=== PATIENT | male | born 1970 | race Caucasian/White ===

== ENCOUNTER → 2017-04-17 | Outpatient (CLI) | payer OTHER | END | disposition home or self-care (01) | LOC: EMPHLTH 07:48 | PROVIDERS: ATTEND Internal Medicine | DX: Z02.1 Encounter for pre-employment examination (principal) | CPT/HCPCS: 86706; 86735; 86762; 86765; 86787 ==

== ENCOUNTER 2019-11-02 12:15 | Emergency (ER) | payer OTHER ==
[~2019-11-02] VITALS: Ht 172.7 cm; Wt 127.3 kg
[2019-11-02] MEDS ORDERED: LIDOCAINE 1% 10 ML VIAL INJ ONE (12:30)
[2019-11-02] MEDS ORDERED: PERTUSS(ACELL),DIPH,TET VAC/PF 0.5 ML VIAL IM ONE (12:30)
[2019-11-02] MEDS ORDERED: METF-960 PO (12:31)
[2019-11-02 12:43] LABS: GLUCOSE,POINT OF CARE 184 MG/DL (70-110)
[2019-11-02 14:01] VITALS: BP 140/94
== END 2019-11-02 14:15 | disposition home or self-care (01) ==
LOC: EEVIPCON 12:16 → EMS 12:16
DX: S01.511A Laceration without foreign body of lip, initial encounter (principal); E11.9 Type 2 diabetes mellitus without complications; I10 Essential (primary) hypertension; Z86.73 Personal history of transient ischemic attack (TIA), and cerebral infarction without residual deficits; Z79.84 Long term (current) use of oral hypoglycemic drugs; Y04.2XXA Assault by strike against or bumped into by another person, initial encounter; Y93.89 Activity, other specified; Y92.89 Other specified places as the place of occurrence of the external cause; Y99.0 Civilian activity done for income or pay
CPT/HCPCS: 12051; 82962; 90471; 90715; 99284; J3490; 12011

== ENCOUNTER 2019-11-06 14:13 | Emergency (ER) | payer OTHER ==
[~2019-11-06] VITALS: Ht 177.8 cm; Wt 106.8 kg
[~2019-11-06 14:13] MED LIST: METF-960 PO
[2019-11-06 14:17] VITALS: BP 145/79
== END 2019-11-06 15:08 | disposition home or self-care (01) ==
LOC: EMS 14:17
DX: S01.511D Laceration without foreign body of lip, subsequent encounter (principal); I10 Essential (primary) hypertension; E11.9 Type 2 diabetes mellitus without complications; Z79.84 Long term (current) use of oral hypoglycemic drugs; Z48.02 Encounter for removal of sutures; Y04.0XXD Assault by unarmed brawl or fight, subsequent encounter
CPT/HCPCS: Z7502

== ENCOUNTER 2021-06-01 11:07 | Emergency (ER) | payer OTHER ==
[~2021-06-01] VITALS: Ht 175.3 cm; Wt 127.3 kg
[~2021-06-01 11:07] MED LIST changes: +METF-1211 PO; -METF-960 PO
[2021-06-01 11:09] VITALS: BP 144/87
[2021-06-01 11:34] LABS: BASOPHILS % (AUTO) 0.4 % (0.0-2.0); EOSINOPHILS % (AUTO) 1.7 % (1.0-6.0); HEMOGLOBIN 16.1 g/dL (13.5-17.5); LYMPHOCYTES # (AUTO) 1.5 K/uL (1.0-4.8); LYMPHOCYTES % (AUTO) 17.3 % (22.0-44.0); MEAN CORPUSCULAR HEMOGLOBIN 29.5 pg (26.0-34.0); MEAN CORPUSCULAR HGB CONC 34.2 G/dL (31.0-37.0); MEAN CORPUSCULAR VOLUME 86 fL (80-100); MONOCYTES # (AUTO) 0.5 K/uL (0.1-1.0); MONOCYTES % (AUTO) 5.8 % (2.0-9.0); NEUTROPHILS # (AUTO) 6.3 K/uL (1.8-7.7); NEUTROPHILS % (AUTO) 74.8 % (40.0-70.0); PLATELET COUNT (AUTO) 209 K/uL (150-450); RED BLOOD CELL COUNT(AUTO) 5.44 MIL/uL (4.50-5.90); RED CELL DISTRIBUTION WIDTH 12.4 % (11.5-14.5)
[2021-06-01 11:49] LABS: ANION GAP 6 mmol/L (8-16); CALCIUM, TOTAL 8.9 mg/dL (8.8-10.5); CARBON DIOXIDE 31 mmol/L (22-29); CHLORIDE 96 mmol/L (98-107); CREATININE 0.78 mg/dL (0.60-1.30); GLOMERULAR FILTR. RATE CALC > 60 mL/min (>60); GLUCOSE,RANDOM 342 mg/dL (70-110); POTASSIUM 4.3 mmol/L (3.5-5.1); SODIUM SERUM 133 mmol/L (136-145); UREA NITROGEN, BLOOD 12 mg/dL (7-18)
[2021-06-01 11:53] LABS: ALANINE AMINOTRANSFERASE 45 U/L (12-78); ALKALINE PHOSPHATASE 78 U/L (46-116); ASPARTATE AMINOTRANSFERASE 25 U/L (15-37); BILIRUBIN,TOTAL 0.6 mg/dL (0.1-1.0); TOTAL PROTEIN, SERUM 8.4 g/dL (6.4-8.2)
[2021-06-02 04:06] LABS: HEPATITIS C AB (EIA) <0.1 s/co ratio (0.0-0.9)
[2021-06-02 06:06] LABS: HIV 1-2 SCREEN 4TH GEN W/RFLX Non Reactive (Non Reactive)
== END 2021-06-01 12:45 | disposition home or self-care (01) ==
LOC: EMS 11:13
DX: S61.032A Puncture wound without foreign body of left thumb without damage to nail, initial encounter (principal); E11.9 Type 2 diabetes mellitus without complications; I10 Essential (primary) hypertension; Z86.73 Personal history of transient ischemic attack (TIA), and cerebral infarction without residual deficits; Z79.84 Long term (current) use of oral hypoglycemic drugs; W46.1XXA Contact with contaminated hypodermic needle, initial encounter; Y93.89 Activity, other specified; Y92.89 Other specified places as the place of occurrence of the external cause; Y99.8 Other external cause status
CPT/HCPCS: 80053; 80074; 85025; 87389; 99283

== ENCOUNTER → 2021-07-22 | Outpatient (CLI) | payer OTHER ==
[2021-07-23 07:07] LABS: HEPATITIS C AB (EIA) <0.1 s/co ratio (0.0-0.9); HIV 1-2 SCREEN 4TH GEN W/RFLX Non Reactive (Non Reactive)
== END | disposition home or self-care (01) ==
LOC: LABMN 08:09
PROVIDERS: ATTEND Internal Medicine
DX: Z20.828 Contact with and (suspected) exposure to other viral communicable diseases (principal); W46.0XXA Contact with hypodermic needle, initial encounter; Y93.89 Activity, other specified; Y92.89 Other specified places as the place of occurrence of the external cause; Y99.8 Other external cause status
CPT/HCPCS: 86704; 86706; 86709; 86803; 87389

== ENCOUNTER → 2021-09-01 | Outpatient (CLI) | payer OTHER ==
[2021-09-02 08:06] LABS: HIV 1-2 SCREEN 4TH GEN W/RFLX Non Reactive (Non Reactive)
[2021-09-02 10:07] LABS: HEPATITIS A ANTIBODY TOTAL Negative (Negative); HEPATITIS C AB (EIA) <0.1 s/co ratio (0.0-0.9)
== END | disposition home or self-care (01) ==
LOC: LABMN 10:56
PROVIDERS: ATTEND Internal Medicine
DX: Z77.21 Contact with and (suspected) exposure to potentially hazardous body fluids (principal)
CPT/HCPCS: 86705; 86708; 86803; 87340; 87389

== ENCOUNTER → 2021-12-01 | Outpatient (CLI) | payer OTHER ==
[2021-12-02 08:06] LABS: HEPATITIS C AB (EIA) <0.1 s/co ratio (0.0-0.9); HIV 1-2 SCREEN 4TH GEN W/RFLX Non Reactive (Non Reactive)
== END | disposition home or self-care (01) ==
LOC: LABMN 11:45
PROVIDERS: ATTEND Internal Medicine
DX: S61.032A Puncture wound without foreign body of left thumb without damage to nail, initial encounter (principal); X58.XXXA Exposure to other specified factors, initial encounter; Y93.89 Activity, other specified; Y92.89 Other specified places as the place of occurrence of the external cause; Y99.8 Other external cause status
CPT/HCPCS: 86705; 86709; 86803; 87340; 87389

== ENCOUNTER → 2022-03-21 | Outpatient (CLI) | payer OTHER ==
[2022-03-21 09:09] LABS: HEMOGLOBIN A1C 10.8 % (3.8-5.6)
[2022-03-21 09:23] LABS: ALANINE AMINOTRANSFERASE 41 U/L (12-78); ALBUMIN 4.1 g/dL (3.4-5.0); ALKALINE PHOSPHATASE 84 U/L (46-116); ANION GAP 2 mmol/L (8-16); ASPARTATE AMINOTRANSFERASE 23 U/L (15-37); BILIRUBIN,TOTAL 0.5 mg/dL (0.1-1.0); CALCIUM, TOTAL 8.8 mg/dL (8.8-10.5); CARBON DIOXIDE 33 mmol/L (22-29); CHLORIDE 100 mmol/L (98-107); CHOL/HDL RATIO 3.5 (4.2-7.3); CHOLESTEROL 202 mg/dL (131-200); CREATININE 0.81 mg/dL (0.60-1.30); GLUCOSE,RANDOM 219 mg/dL (70-110); HDL CHOLESTEROL 57 mg/dL (40-60); LDL CHOL (CALC.) 123 mg/dL (0-130); POTASSIUM 4.1 mmol/L (3.5-5.1); SODIUM SERUM 135 mmol/L (136-145); THYROID STIMULATING HORMONE 1.66 uIU/mL (0.36-3.74); TOTAL PROTEIN, SERUM 8.5 g/dL (6.4-8.2); TRIGLYCERIDES 110 mg/dL (15-150); UREA NITROGEN, BLOOD 12 mg/dL (7-18)
[2022-03-21 09:25] LABS: GLOMERULAR FILTR. RATE CALC > 60 mL/min (>60)
[2022-03-21 12:29] LABS: FOLATE SERUM > 24.0 ng/mL (5.4-); VITAMIN B12 LEVEL > 2000 pg/mL (211-911); VITAMIN D,TOTAL (25-0H) 12 ng/mL (30-100)
== END | disposition home or self-care (01) ==
LOC: LABMN 08:27
PROVIDERS: ATTEND Internal Medicine Geriatric Medicine
DX: Z00.00 Encounter for general adult medical examination without abnormal findings (principal)
CPT/HCPCS: 80053; 80061; 82043; 82306; 82570; 82607; 82746; 83036; 84443

== ENCOUNTER 2022-05-04 07:36 | Emergency (ER) | payer OTHER ==
[~2022-05-04] VITALS: Ht 175.3 cm; Wt 121.8 kg
[2022-05-04] MEDS ORDERED: LOSA-382 PO (07:40)
[2022-05-04] MEDS ORDERED: ASPI-1444 PO (07:40)
[2022-05-04] MEDS ORDERED: SITA50 PO (07:40)
[2022-05-04] MEDS ORDERED: ROSU10TA72 PO (07:40)
[2022-05-04] MEDS ORDERED: DULA0.75 SQ (07:40)
[2022-05-04 07:41] VITALS: BP 151/87
[2022-05-04 07:46] LABS: COVID AG,FIA SOURCE NASAL SWAB
[2022-05-04 08:10] LABS: INFLUENZA TYPE A NEGATIVE FOR TYPE A (NEGATIVE); INFLUENZA TYPE B NEGATIVE FOR TYPE B (NEGATIVE)
== END 2022-05-04 09:57 | disposition home or self-care (01) ==
LOC: EMS 07:37
DX: J06.9 Acute upper respiratory infection, unspecified (principal); E11.9 Type 2 diabetes mellitus without complications; I10 Essential (primary) hypertension; I63.9 Cerebral infarction, unspecified; Z20.822 Contact with and (suspected) exposure to COVID-19
CPT/HCPCS: 87430; 87804; 99283

== ENCOUNTER → 2022-05-31 | Outpatient (CLI) | payer OTHER ==
[~2022-05-31] MED LIST changes: +ASPI-1444 PO; +DULA0.75 SQ; +LOSA-382 PO; +ROSU10TA72 PO; +SITA50 PO
[2022-06-01 11:07] LABS: HIV 1-2 SCREEN 4TH GEN W/RFLX Non Reactive (Non Reactive)
[2022-06-01 13:07] LABS: HEPATITIS C AB (EIA) Non Reactive (Non Reactive)
== END | disposition home or self-care (01) ==
LOC: LABMN 12:44
PROVIDERS: ATTEND Internal Medicine
DX: S61.239A Puncture wound without foreign body of unspecified finger without damage to nail, initial encounter (principal); X58.XXXA Exposure to other specified factors, initial encounter; Y93.89 Activity, other specified; Y92.89 Other specified places as the place of occurrence of the external cause; Y99.8 Other external cause status
CPT/HCPCS: 86705; 86709; 86803; 87389

== ENCOUNTER → 2022-06-22 | Outpatient (CLI) | payer OTHER ==
[2022-06-22 08:45] LABS: BASOPHILS % (AUTO) 0.3 % (0.0-2.0); EOSINOPHILS % (AUTO) 4.1 % (1.0-6.0); HEMATOCRIT 39.3 % (41-53); HEMOGLOBIN 13.5 g/dL (13.5-17.5); LYMPHOCYTES # (AUTO) 1.3 K/uL (1.0-4.8); LYMPHOCYTES % (AUTO) 18.7 % (22.0-44.0); MEAN CORPUSCULAR HEMOGLOBIN 30.5 pg (26.0-34.0); MEAN CORPUSCULAR HGB CONC 34.4 G/dL (31.0-37.0); MEAN CORPUSCULAR VOLUME 89 fL (80-100); MONOCYTES # (AUTO) 0.4 K/uL (0.1-1.0); MONOCYTES % (AUTO) 5.7 % (2.0-9.0); NEUTROPHILS # (AUTO) 4.9 K/uL (1.8-7.7); NEUTROPHILS % (AUTO) 71.2 % (40.0-70.0); PLATELET COUNT (AUTO) 202 K/uL (150-450); RED BLOOD CELL COUNT(AUTO) 4.44 MIL/uL (4.50-5.90); RED CELL DISTRIBUTION WIDTH 12.6 % (11.5-14.5)
[2022-06-22 08:59] LABS: HEMOGLOBIN A1C 7.8 % (3.8-5.6)
[2022-06-22 09:05] LABS: ALANINE AMINOTRANSFERASE 27 U/L (12-78); ALBUMIN 3.8 g/dL (3.4-5.0); ALKALINE PHOSPHATASE 70 U/L (46-116); ANION GAP 10 mmol/L (8-16); ASPARTATE AMINOTRANSFERASE 17 U/L (15-37); BILIRUBIN,TOTAL 0.3 mg/dL (0.1-1.0); CALCIUM, TOTAL 8.8 mg/dL (8.8-10.5); CARBON DIOXIDE 27 mmol/L (22-29); CHLORIDE 104 mmol/L (98-107); CHOL/HDL RATIO 2.4 (4.2-7.3); CHOLESTEROL 124 mg/dL (131-200); CREATININE 0.61 mg/dL (0.60-1.30); GLOMERULAR FILTR. RATE CALC > 60 mL/min (>60); GLUCOSE,RANDOM 148 mg/dL (70-110); HDL CHOLESTEROL 51 mg/dL (40-60); LDL CHOL (CALC.) 55 mg/dL (0-130); POTASSIUM 4.1 mmol/L (3.5-5.1); SODIUM SERUM 141 mmol/L (136-145); TOTAL PROTEIN, SERUM 7.7 g/dL (6.4-8.2); TRIGLYCERIDES 92 mg/dL (15-150); UREA NITROGEN, BLOOD 11 mg/dL (7-18)
== END | disposition home or self-care (01) ==
LOC: LABMN 08:25
PROVIDERS: ATTEND Internal Medicine Geriatric Medicine
DX: E11.59 Type 2 diabetes mellitus with other circulatory complications (principal)
CPT/HCPCS: 80053; 80061; 82043; 82570; 83036; 85025

== ENCOUNTER 2022-10-26 09:05 | Emergency (ER) | payer OTHER ==
[~2022-10-26] VITALS: Ht 175.3 cm; Wt 125.0 kg
[2022-10-26 09:33] VITALS: BP 138/85; PULSE 110; RESP 16; TEMP 98.4
== END 2022-10-26 10:43 | disposition home or self-care (01) ==
LOC: EMS 09:09
DX: S50.812A Abrasion of left forearm, initial encounter (principal); S50.811A Abrasion of right forearm, initial encounter; E11.9 Type 2 diabetes mellitus without complications; X58.XXXA Exposure to other specified factors, initial encounter; Y93.89 Activity, other specified; Y92.89 Other specified places as the place of occurrence of the external cause; Y99.8 Other external cause status
CPT/HCPCS: 82962; 99282

== ENCOUNTER 2023-11-17 11:12 | Emergency (ER) | payer OTHER ==
[~2023-11-17] VITALS: Ht 175.3 cm; Wt 120.5 kg
[2023-11-17 11:16] VITALS: TEMP 98.6
[2023-11-17 11:35] LABS: GLUCOMETER DEV NAME(LOC) ERT.6; GLUCOSE,POINT OF CARE 338 MG/DL (70-110)
[2023-11-17 11:50] VITALS: BP 146/96; PULSE 95; RESP 18; O2SAT 98
[2023-11-17] MEDS: ACETAMINOPHEN 500 MG TABLET PO ONE (12:20)
[2023-11-17] MEDS ORDERED: IBUP-1492 PO (13:39)
== END 2023-11-17 13:59 | disposition home or self-care (01) ==
LOC: EMS 11:12
DX: S01.01XA Laceration without foreign body of scalp, initial encounter (principal); S40.011A Contusion of right shoulder, initial encounter; E11.9 Type 2 diabetes mellitus without complications; E78.00 Pure hypercholesterolemia, unspecified; I10 Essential (primary) hypertension; W19.XXXA Unspecified fall, initial encounter; Y93.89 Activity, other specified; Y92.89 Other specified places as the place of occurrence of the external cause; Y99.8 Other external cause status
CPT/HCPCS: 12001; 82962; 99283

== ENCOUNTER 2023-11-20 08:39 | Emergency (ER) | payer OTHER ==
[~2023-11-20] VITALS: Ht 175.3 cm; Wt 120.0 kg
[~2023-11-20 08:39] MED LIST changes: +IBUP-1492 PO
[2023-11-20 08:40] VITALS: BP 135/65; PULSE 109; RESP 20; TEMP 98.7; O2SAT 100
== END 2023-11-20 09:20 | disposition home or self-care (01) ==
LOC: EMS 08:39
DX: S49.91XD Unspecified injury of right shoulder and upper arm, subsequent encounter (principal); E11.9 Type 2 diabetes mellitus without complications; I10 Essential (primary) hypertension; X58.XXXD Exposure to other specified factors, subsequent encounter
CPT/HCPCS: 99281; Z7502

== ENCOUNTER 2023-11-28 16:20 | Emergency (ER) | payer OTHER ==
[~2023-11-28] VITALS: Ht 175.3 cm; Wt 120.5 kg
[2023-11-28 16:23] VITALS: TEMP 98.6
[2023-11-28] MEDS: INSULIN REGULAR, HUMAN 100 UNITS/ML SQ ONE (17:52)
[2023-11-28 18:23] VITALS: BP 158/70; PULSE 98; RESP 18; O2SAT 99
[2023-11-29 03:21] LABS: GLUCOMETER DEV NAME(LOC) ERT.6; GLUCOSE,POINT OF CARE 364 MG/DL (70-110)
[2023-11-29 03:21] LABS: GLUCOMETER DEV NAME(LOC) ERT.6; GLUCOSE,POINT OF CARE 388 MG/DL (70-110)
== END 2023-11-28 19:00 | disposition home or self-care (01) ==
LOC: EMS 16:20
DX: R21 Rash and other nonspecific skin eruption (principal); E11.9 Type 2 diabetes mellitus without complications; E78.00 Pure hypercholesterolemia, unspecified; I10 Essential (primary) hypertension; Z79.82 Long term (current) use of aspirin; Z79.84 Long term (current) use of oral hypoglycemic drugs; Z79.899 Other long term (current) drug therapy
CPT/HCPCS: 99283; 82962; 96372; J1815

== ENCOUNTER 2024-04-05 09:58 | Emergency (ER) | payer OTHER ==
[~2024-04-05] VITALS: Ht 175.3 cm; Wt 120.5 kg
[2024-04-05 10:02] VITALS: BP 136/83; PULSE 107; RESP 16; TEMP 98.4; O2SAT 98
[2024-04-05] MEDS: ACETAMINOPHEN 500 MG TABLET PO ONE (10:26)
== END 2024-04-05 10:39 | disposition home or self-care (01) ==
LOC: EMS 10:01
DX: S00.93XA Contusion of unspecified part of head, initial encounter (principal); E11.9 Type 2 diabetes mellitus without complications; E78.00 Pure hypercholesterolemia, unspecified; I10 Essential (primary) hypertension; Z79.82 Long term (current) use of aspirin; Z79.84 Long term (current) use of oral hypoglycemic drugs; Z79.899 Other long term (current) drug therapy; W01.0XXA Fall on same level from slipping, tripping and stumbling without subsequent striking against object, initial encounter; Y93.89 Activity, other specified; Y92.89 Other specified places as the place of occurrence of the external cause; Y99.0 Civilian activity done for income or pay
CPT/HCPCS: 82962; 99282

== ENCOUNTER 2024-06-12 12:07 | Emergency (ER) | payer OTHER ==
[~2024-06-12] VITALS: Ht 175.3 cm; Wt 100.0 kg
[~2024-06-12 12:07] MED LIST changes: -IBUP-1492 PO
[2024-06-12 12:15] VITALS: TEMP 98.1
[2024-06-12] MEDS ORDERED: CARV6.2534 PO (12:19)
[2024-06-12] MEDS ORDERED: METF-446 PO (12:20)
[2024-06-12] MEDS ORDERED: AMLO10TA55 PO (12:20)
[2024-06-12] MEDS ORDERED: LOSA100T59 PO (12:20)
[2024-06-12 13:18] LABS: BASOPHILS % (AUTO) 0.3 % (0.0-2.0); EOSINOPHILS % (AUTO) 2.3 % (1.0-6.0); HEMATOCRIT 42.8 % (41-53); HEMOGLOBIN 14.4 g/dL (13.5-17.5); LYMPHOCYTES # (AUTO) 1.3 K/uL (1.0-4.8); LYMPHOCYTES % (AUTO) 15.4 % (22.0-44.0); MEAN CORPUSCULAR HEMOGLOBIN 29.6 pg (26.0-34.0); MEAN CORPUSCULAR HGB CONC 33.8 G/dL (31.0-37.0); MEAN CORPUSCULAR VOLUME 88 fL (80-100); MONOCYTES # (AUTO) 0.5 K/uL (0.1-1.0); MONOCYTES % (AUTO) 5.6 % (2.0-9.0); NEUTROPHILS # (AUTO) 6.7 K/uL (1.8-7.7); NEUTROPHILS % (AUTO) 76.4 % (40.0-70.0); PLATELET COUNT (AUTO) 251 K/uL (150-450); RED BLOOD CELL COUNT(AUTO) 4.88 MIL/uL (4.50-5.90); WHITE BLOOD COUNT (AUTO) 8.7 K/uL (4.5-11.0)
[2024-06-12 13:22] LABS: ANION GAP 7 mmol/L (8-16); CALCIUM, TOTAL 9.4 mg/dL (8.8-10.5); CARBON DIOXIDE 31 mmol/L (22-29); CHLORIDE 100 mmol/L (98-107); CREATININE 0.81 mg/dL (0.60-1.30); GLOMERULAR FILTR. RATE CALC > 60 mL/min (>60); GLUCOSE,RANDOM 204 mg/dL (70-110); POTASSIUM 4.2 mmol/L (3.5-5.1); SODIUM SERUM 138 mmol/L (136-145); UREA NITROGEN, BLOOD 17 mg/dL (7-18)
[2024-06-12 13:30] LABS: ALBUMIN 3.6 g/dL (3.4-5.0); BILIRUBIN,DIRECT 0.1 mg/dL (0.00-0.20); BILIRUBIN,TOTAL 0.4 mg/dL (0.1-1.0); TOTAL PROTEIN, SERUM 8.2 g/dL (6.4-8.2)
[2024-06-12 14:27] VITALS: BP 145/77; PULSE 98; RESP 18; O2SAT 99
[2024-06-13 06:07] LABS: HEPATITIS C AB (EIA) Non Reactive (Non Reactive)
== END 2024-06-12 14:31 | disposition home or self-care (01) ==
LOC: EMS 12:14
DX: Z77.21 Contact with and (suspected) exposure to potentially hazardous body fluids (principal); E11.9 Type 2 diabetes mellitus without complications; I10 Essential (primary) hypertension; E78.00 Pure hypercholesterolemia, unspecified; Z79.82 Long term (current) use of aspirin; Z79.84 Long term (current) use of oral hypoglycemic drugs; Z79.899 Other long term (current) drug therapy
CPT/HCPCS: 80048; 80076; 82962; 85025; 86706; 86803; 99283

== ENCOUNTER 2024-10-07 06:59 | Emergency (ER) | payer OTHER ==
[~2024-10-07] VITALS: Ht 175.3 cm; Wt 125.0 kg
[~2024-10-07 06:59] MED LIST changes: +AMLO10TA55 PO; +CARV6.2534 PO; -DULA0.75 SQ; -LOSA-382 PO; +LOSA100T59 PO; -METF-1211 PO; +METF-446 PO; -SITA50 PO
[2024-10-07 07:01] VITALS: BP 186/99; PULSE 122; RESP 18; TEMP 97.5; O2SAT 99
[2024-10-07] MEDS: BACITRACIN 0.9 GM PACKET OINTMENT TP ONE (07:11)
[2024-10-07] MEDS: ACETAMINOPHEN 500 MG TABLET PO ONE (07:11)
[2024-10-07 07:20] LABS: GLUCOMETER DEV NAME(LOC) ER.7; GLUCOSE,POINT OF CARE 306 MG/DL (70-110)
[2024-10-07] MEDS ORDERED: ACET-3385 PO (07:41)
== END 2024-10-07 07:59 | disposition home or self-care (01) ==
LOC: EMS 06:59
DX: S83.92XA Sprain of unspecified site of left knee, initial encounter (principal); E78.00 Pure hypercholesterolemia, unspecified; E11.9 Type 2 diabetes mellitus without complications; I10 Essential (primary) hypertension; Z79.82 Long term (current) use of aspirin; Z79.899 Other long term (current) drug therapy; W22.09XA Striking against other stationary object, initial encounter; Y93.89 Activity, other specified; Y92.89 Other specified places as the place of occurrence of the external cause; Y99.8 Other external cause status
CPT/HCPCS: 82962; 99283

== ENCOUNTER 2024-10-25 10:06 | Inpatient (IN) | payer OTHER ==
[~2024-10-25] VITALS: Ht 175.3 cm; Wt 123.8 kg
[~2024-10-25 10:06] MED LIST changes: +ACET-3385 PO
[2024-10-25] MEDS ORDERED: ONDANSETRON HCL 4 MG/2 ML VIAL ONE (10:09)
[2024-10-25] MEDS: SODIUM CHLORIDE 0.9% 1,000 ML IV ONE ×2 (10:38→11:07)
[2024-10-25] MEDS: ONDANSETRON HCL 4 MG/2 ML VIAL IVP ONE (10:38)
[2024-10-25] MEDS: VANCOMYCIN 1.25 GM/WATER(PEG) 250 ML IV ONE (10:38)
[2024-10-25] MEDS: CEFEPIME HCL 2 GM in DEXTROSE 5%-WATER 50 ML IV ONE (10:39)
[2024-10-25 10:41] LABS: PLATELET COUNT (AUTO) 309 K/uL (150-450); RED BLOOD CELL COUNT(AUTO) 4.40 MIL/uL (4.50-5.90); RED CELL DISTRIBUTION WIDTH 12.2 % (11.5-14.5); WHITE BLOOD COUNT (AUTO) 24.2 K/uL (4.5-11.0)
[2024-10-25 10:46] LABS: COVID AG,FIA SOURCE NASAL SWAB
[2024-10-25 10:50] LABS: CALCIUM, TOTAL 7.9 mg/dL (8.8-10.5); CREATININE 1.20 mg/dL (0.60-1.30); GLOMERULAR FILTR. RATE CALC > 60 mL/min (>60); SODIUM SERUM 125 mmol/L (136-145); UREA NITROGEN, BLOOD 16 mg/dL (7-18)
[2024-10-25 10:53] LABS: GLUCOSE,RANDOM 438 mg/dL (70-110)
[2024-10-25 10:59] LABS: TROPONIN I-HIGH SENSITIVITY 6 ng/L (<76)
[2024-10-25 11:01] LABS: LACTIC ACID 2.1 mmol/L (0.4-2.0)
[2024-10-25 11:06] LABS: ASPARTATE AMINOTRANSFERASE 14 U/L (15-37); CREATINE KINASE, TOTAL ONLY 45 U/L (39-308); TOTAL PROTEIN, SERUM 7.4 g/dL (6.4-8.2)
[2024-10-25] MEDS: POTASSIUM CHL 10 MEQ/WATER 50 ML IV ONE (11:06)
[2024-10-25] MEDS: MetroNIDAZOLE 500 MG/NACL 100 ML IV ONE (11:07)
[2024-10-25] MEDS: ACETAMINOPHEN 1000 MG/ISO-OSM 100 ML IV ONE (11:07)
[2024-10-25] MEDS: POTASSIUM CHLORIDE 20 MEQ ER TABLET PO ONE (11:07)
[2024-10-25] MEDS: INSULIN REGULAR, HUMAN 100 UNITS/ML IVP ONE ×2 (11:08→13:06)
[2024-10-25 11:16] LABS: INFLUENZA TYPE A NEGATIVE FOR TYPE A (NEGATIVE); INFLUENZA TYPE B NEGATIVE FOR TYPE B (NEGATIVE); SARS-COV2 (COVID) ANTIGEN,FIA Negative (Negative)
[2024-10-25 11:19] LABS: ACETONE,BLOOD TRACE (NEGATIVE)
[2024-10-25] MEDS ORDERED: RINGERS SOLUTION,LACTATED 0 ML IV ONE (11:36)
[2024-10-25] MEDS: BUPIVACAINE HCL/PF 0.5% 10 ML VIAL ONE (12:00)
[2024-10-25] MEDS: LIDOCAINE/PF 2% 5 ML VIAL ONE (12:00)
[2024-10-25] MEDS: CHLORHEXIDINE GLUCONATE 2% TOWELETTE [2'S/6'S] TP ONE (12:02)
[2024-10-25] MEDS: ETHYL ALCOHOL 62% ANTISEPTIC NASAL SANITIZER 0.6 ML AMPUL NASAL ONE (12:02)
[2024-10-25] MEDS ORDERED: MEPERIDINE-PF 25 MG/ML VIAL IVP PRN (12:15)
[2024-10-25] MEDS ORDERED: FentaNYL CITRATE PF 100 MCG/2 ML VIAL IVP PRN (12:15)
[2024-10-25] MEDS: VANCOMYCIN HCL 1 GM VIAL ONE (12:22)
[2024-10-25 12:50] LABS: GLUCOMETER DEV NAME(LOC) SDS.; GLUCOSE,POINT OF CARE 386 MG/DL (70-110)
[2024-10-25] MEDS ORDERED: MAGNESIUM HYDROXIDE SUSPENSION 30 ML UDCUP PO PRN (13:45)
[2024-10-25] MEDS ORDERED: ONDANSETRON HCL 4 MG/2 ML VIAL IVP PRN (13:45)
[2024-10-25] MEDS ORDERED: BISACODYL 10 MG RECTAL RECTAL SUPPOSITORY PR PRN (13:45)
[2024-10-25 15:47] LABS: C-REACTIVE PROTEIN QUANT 36.03 mg/dL (0.00-0.30)
[2024-10-25] MEDS: HEPARIN SODIUM,PORCINE 5,000 UNITS/ML VIAL SQ SCH (16:00)
[2024-10-25] MEDS: CLINDAMYCIN 900 MG/D5% WATER 50 ML IV ONE (16:00)
[2024-10-25 16:41] VITALS: BP 107/61; PULSE 76; RESP 19; TEMP 98.1; O2SAT 97
[2024-10-25] MEDS: PIPERACILLIN/TAZO 3.375 GM/D5W 50 ML IV SCH (17:37)
[2024-10-25] MEDS ORDERED: DEXTROSE 50%-WATER 25 GM/50 ML SYRINGE IVP PRN (17:45)
[2024-10-25 20:18] VITALS: BP 110/58; PULSE 90; RESP 18; TEMP 99.9; O2SAT 97
[2024-10-25] MEDS: ACETAMINOPHEN 325 MG TABLET PO PRN (20:21)
[2024-10-25] MEDS: VANCOMYCIN 1.5 GM/WATER(PEG) 300 ML IV SCH (20:21)
[2024-10-25] MEDS: ROSUVASTATIN CALCIUM 10 MG TABLET PO SCH (20:22)
[2024-10-25] MEDS: OXYGEN THERAPY IH SCH (20:32)
[2024-10-25] MEDS: DOCUSATE SODIUM 100 MG CAPSULE PO SCH (20:33)
[2024-10-25] MEDS: INSULIN LISPRO 100 UNITS/ML SQ PRN (22:19)
[2024-10-25] MEDS: CLINDAMYCIN 900 MG/D5% WATER 50 ML IV SCH (23:13)
[2024-10-25 23:56] LABS: GLUCOMETER DEV NAME(LOC) 5S.1D; GLUCOSE,POINT OF CARE 373 MG/DL (70-110)
[2024-10-26] VITALS (7 sets, daily range): BP systolic 99–150; BP diastolic 50–78; PULSE 83–94; RESP 17–19; TEMP 98–99.5; O2SAT 95–100
[2024-10-26 06:24] LABS: PLATELET COUNT (AUTO) 302 K/uL (150-450); RED BLOOD CELL COUNT(AUTO) 4.16 MIL/uL (4.50-5.90); RED CELL DISTRIBUTION WIDTH 12.3 % (11.5-14.5); WHITE BLOOD COUNT (AUTO) 19.4 K/uL (4.5-11.0)
[2024-10-26 06:26] LABS: CALCIUM, TOTAL 7.8 mg/dL (8.8-10.5); CREATININE 0.77 mg/dL (0.60-1.30); GLOMERULAR FILTR. RATE CALC > 60 mL/min (>60); GLUCOSE,RANDOM 274 mg/dL (70-110); SODIUM SERUM 130 mmol/L (136-145); UREA NITROGEN, BLOOD 13 mg/dL (7-18)
[2024-10-26] MEDS: ASPIRIN 81 MG DR TABLET PO SCH (08:26)
[2024-10-26] MEDS: PANTOPRAZOLE SODIUM 40 MG DR TABLET PO SCH (08:26)
[2024-10-26] MEDS: LOSARTAN POTASSIUM 50 MG TABLET PO SCH (08:26)
[2024-10-26 22:16] LABS: GLUCOMETER DEV NAME(LOC) 4E.2; GLUCOSE,POINT OF CARE 279 MG/DL (70-110)
[2024-10-27 05:05] VITALS: BP 136/72; PULSE 91; RESP 18; TEMP 99.5; TEMP 99.9; O2SAT 96
[2024-10-27 06:08] VITALS: TEMP 98.2
[2024-10-27 07:01] LABS: GLUCOMETER DEV NAME(LOC) 4E.2; GLUCOSE,POINT OF CARE 248 MG/DL (70-110)
[2024-10-27 07:45] VITALS: BP 125/78; PULSE 91; RESP 18; TEMP 98.6; O2SAT 99
[2024-10-27 08:01] LABS: PLATELET COUNT (AUTO) 338 K/uL (150-450); RED BLOOD CELL COUNT(AUTO) 4.17 MIL/uL (4.50-5.90); RED CELL DISTRIBUTION WIDTH 12.3 % (11.5-14.5); WHITE BLOOD COUNT (AUTO) 18.2 K/uL (4.5-11.0)
[2024-10-27 08:25] LABS: ASPARTATE AMINOTRANSFERASE 18 U/L (15-37); CALCIUM, TOTAL 7.9 mg/dL (8.8-10.5); CREATININE 0.77 mg/dL (0.60-1.30); GLOMERULAR FILTR. RATE CALC > 60 mL/min (>60); GLUCOSE,RANDOM 249 mg/dL (70-110); SODIUM SERUM 130 mmol/L (136-145); TOTAL PROTEIN, SERUM 6.8 g/dL (6.4-8.2); UREA NITROGEN, BLOOD 9 mg/dL (7-18)
[2024-10-27 08:53] LABS: C-REACTIVE PROTEIN QUANT 27.10 mg/dL (0.00-0.30)
[2024-10-27] MEDS: POTASSIUM CHLORIDE 20 MEQ ER TABLET PO ONE (12:05)
[2024-10-27 13:41] LABS: GLUCOMETER DEV NAME(LOC) 6S.1D; GLUCOSE,POINT OF CARE 262 MG/DL (70-110)
[2024-10-27 15:20] VITALS: BP 121/72; PULSE 94; RESP 20; TEMP 99.6; O2SAT 97
[2024-10-27] MEDS: VANCOMYCIN 1.25 GM/WATER(PEG) 250 ML IV SCH (17:07)
[2024-10-27 20:06] LABS: GLUCOMETER DEV NAME(LOC) 6S.1D; GLUCOSE,POINT OF CARE 233 MG/DL (70-110)
[2024-10-27 20:14] VITALS: BP 146/82; PULSE 97; RESP 19; TEMP 99.7; O2SAT 99
[2024-10-27] MEDS: ZOLPIDEM TARTRATE 5 MG TABLET PO PRN (20:19)
[2024-10-27 21:36] LABS: GLUCOMETER DEV NAME(LOC) 6S.1D; GLUCOSE,POINT OF CARE 230 MG/DL (70-110)
[2024-10-28 03:34] VITALS: BP 147/81; PULSE 90; RESP 19; TEMP 98.8; O2SAT 99
[2024-10-28 06:35] LABS: GLUCOMETER DEV NAME(LOC) 4E.2; GLUCOSE,POINT OF CARE 243 MG/DL (70-110)
[2024-10-28 06:52] LABS: PLATELET COUNT (AUTO) 371 K/uL (150-450); RED BLOOD CELL COUNT(AUTO) 4.14 MIL/uL (4.50-5.90); RED CELL DISTRIBUTION WIDTH 12.0 % (11.5-14.5); WHITE BLOOD COUNT (AUTO) 17.6 K/uL (4.5-11.0)
[2024-10-28 07:04] LABS: CALCIUM, TOTAL 8.1 mg/dL (8.8-10.5); CREATININE 0.67 mg/dL (0.60-1.30); GLOMERULAR FILTR. RATE CALC > 60 mL/min (>60); GLUCOSE,RANDOM 218 mg/dL (70-110); SODIUM SERUM 130 mmol/L (136-145); UREA NITROGEN, BLOOD 7 mg/dL (7-18)
[2024-10-28 08:00] VITALS: BP 149/82; PULSE 91; RESP 20; TEMP 98.6; O2SAT 97
[2024-10-28 08:24] LABS: BAND NEUTROPHILS % (MANUAL) 6 % (0-5); EOSINOPHILS % (MANUAL) 1 % (1-6); LYMPHOCYTES % (MANUAL) 13 % (22-44); MONOCYTES % (MANUAL) 3 % (2-9); SEGMENTED NEUTROPHILS % 77 % (40-70)
[2024-10-28 08:25] LABS: RBC MORPHOLOGY COMMENT NORMAL RBC MORPH
[2024-10-28] MEDS ORDERED: GADOTERATE MEGLUMINE 10 MMOL/20 ML VIAL IVP ONE (09:36)
[2024-10-28 11:56] LABS: GLUCOMETER DEV NAME(LOC) 4E.2; GLUCOSE,POINT OF CARE 222 MG/DL (70-110)
[2024-10-28 15:30] VITALS: BP 126/58; PULSE 87; RESP 20; TEMP 99.3; O2SAT 96
[2024-10-28 17:40] LABS: GLUCOMETER DEV NAME(LOC) 4E.2; GLUCOSE,POINT OF CARE 191 MG/DL (70-110)
[2024-10-28 19:13] LABS: APPEARANCE,URINE CLEAR (CLEAR); GLUCOSE, URINE (UA) 70-100 mg/dL (NEGATIVE); LEUKOCYTE ESTERASE ,URINE NEGATIVE (NEGATIVE); NITRATE,URINE NEGATIVE (NEGATIVE); OCCULT BLOOD,URINE NEGATIVE (NEGATIVE); SPECIFIC GRAVITIY, URINE 1.011 (1.003-1.030)
[2024-10-28 19:26] LABS: SQUAMOUS EPITHELIAL CELL,UR Few /LPF (None Seen)
[2024-10-28 19:45] VITALS: BP 139/73; PULSE 95; RESP 18; TEMP 99.1; O2SAT 97
[2024-10-28 21:11] LABS: GLUCOMETER DEV NAME(LOC) 4E.2; GLUCOSE,POINT OF CARE 216 MG/DL (70-110)
[2024-10-29 04:48] VITALS: BP 130/74; PULSE 64; RESP 18; TEMP 99.1; O2SAT 98
[2024-10-29 06:06] LABS: GLUCOMETER DEV NAME(LOC) 4E.2; GLUCOSE,POINT OF CARE 213 MG/DL (70-110)
[2024-10-29 06:21] LABS: GLUCOMETER DEV NAME(LOC) SDS.; GLUCOSE,POINT OF CARE 357 MG/DL (70-110)
[2024-10-29 06:25] LABS: PLATELET COUNT (AUTO) 423 K/uL (150-450); RED BLOOD CELL COUNT(AUTO) 4.18 MIL/uL (4.50-5.90); RED CELL DISTRIBUTION WIDTH 12.2 % (11.5-14.5); WHITE BLOOD COUNT (AUTO) 17.0 K/uL (4.5-11.0)
[2024-10-29 07:02] LABS: ASPARTATE AMINOTRANSFERASE 41 U/L (15-37); C-REACTIVE PROTEIN QUANT 23.80 mg/dL (0.00-0.30); CALCIUM, TOTAL 8.3 mg/dL (8.8-10.5); CREATININE 0.69 mg/dL (0.60-1.30); GLOMERULAR FILTR. RATE CALC > 60 mL/min (>60); GLUCOSE,RANDOM 203 mg/dL (70-110); SODIUM SERUM 132 mmol/L (136-145); TOTAL PROTEIN, SERUM 6.9 g/dL (6.4-8.2); UREA NITROGEN, BLOOD 7 mg/dL (7-18)
[2024-10-29 08:05] VITALS: BP 130/59; PULSE 92; RESP 20; TEMP 100.9; O2SAT 99
[2024-10-29] MEDS ORDERED: PROPOFOL 1% ISO-OSM 1000 MG/100 ML BOTTLE IV ONE (09:29)
[2024-10-29] MEDS ORDERED: RINGERS SOLUTION,LACTATED 1,000 ML IV ONE (11:10)
[2024-10-29] MEDS: CHLORHEXIDINE GLUCONATE 2% TOWELETTE [2'S/6'S] TP ONE (11:24)
[2024-10-29] MEDS: RINGERS SOLUTION,LACTATED 1,000 ML IV ONE (11:24)
[2024-10-29] MEDS: ETHYL ALCOHOL 62% ANTISEPTIC NASAL SANITIZER 0.6 ML AMPUL NASAL ONE (11:24)
[2024-10-29] MEDS ORDERED: MEPERIDINE-PF 25 MG/ML VIAL IVP PRN (11:45)
[2024-10-29] MEDS ORDERED: FentaNYL CITRATE PF 100 MCG/2 ML VIAL IVP PRN (11:45)
[2024-10-29] MEDS ORDERED: MIDAZOLAM HCL 2 MG/2 ML VIAL ONE (12:00)
[2024-10-29] MEDS ORDERED: PROPOFOL 1% ISO-OSM 1000 MG/100 ML BOTTLE ONE (12:00)
[2024-10-29] MEDS ORDERED: FentaNYL CITRATE PF 100 MCG/2 ML VIAL ONE (12:00)
[2024-10-29] MEDS: BUPIVACAINE HCL/PF 0.5% 30 ML VIAL ONE (12:08)
[2024-10-29] MEDS: LIDOCAINE/PF 2% 5 ML VIAL ONE (12:08)
[2024-10-29 16:47] VITALS: BP 138/4; PULSE 87; RESP 20; TEMP 99; O2SAT 98
[2024-10-29 17:41] LABS: GLUCOMETER DEV NAME(LOC) 4E.2; GLUCOSE,POINT OF CARE 229 MG/DL (70-110)
[2024-10-29 19:49] VITALS: BP 140/74; PULSE 90; RESP 18; TEMP 99.9; O2SAT 97
[2024-10-29] MEDS: VANCOMYCIN 1.5 GM/WATER(PEG) 300 ML IV SCH (21:16)
[2024-10-30 04:11] VITALS: BP 138/65; PULSE 88; RESP 18; TEMP 99.1; O2SAT 97
[2024-10-30 05:27] LABS: GLUCOMETER DEV NAME(LOC) 6S.1D; GLUCOSE,POINT OF CARE 220 MG/DL (70-110)
[2024-10-30 08:10] VITALS: BP 161/66; PULSE 86; RESP 18; TEMP 99; O2SAT 98
[2024-10-30 08:11] LABS: GLUCOMETER DEV NAME(LOC) 4E.2; GLUCOSE,POINT OF CARE 203 MG/DL (70-110)
[2024-10-30 08:18] LABS: CALCIUM, TOTAL 8.4 mg/dL (8.8-10.5); CREATININE 0.74 mg/dL (0.60-1.30); GLOMERULAR FILTR. RATE CALC > 60 mL/min (>60); GLUCOSE,RANDOM 188 mg/dL (70-110); SODIUM SERUM 134 mmol/L (136-145)
[2024-10-30 10:54] LABS: UREA NITROGEN, BLOOD 5 mg/dL (7-18)
[2024-10-30 12:21] LABS: GLUCOMETER DEV NAME(LOC) 6N.2C; GLUCOSE,POINT OF CARE 236 MG/DL (70-110)
[2024-10-30 16:20] VITALS: BP 123/56; PULSE 92; RESP 18; TEMP 99.3; O2SAT 98
[2024-10-30 17:20] LABS: GLUCOMETER DEV NAME(LOC) 6N.2C; GLUCOSE,POINT OF CARE 195 MG/DL (70-110)
[2024-10-30 20:15] VITALS: BP 131/70; PULSE 85; RESP 18; TEMP 98.8; O2SAT 97
[2024-10-30 23:11] LABS: GLUCOMETER DEV NAME(LOC) 6N.2C; GLUCOSE,POINT OF CARE 176 MG/DL (70-110)
[2024-10-31 05:00] VITALS: BP 151/82; PULSE 86; RESP 18; TEMP 98.4; O2SAT 97
[2024-10-31 05:55] LABS: GLUCOMETER DEV NAME(LOC) 6N.2C; GLUCOSE,POINT OF CARE 199 MG/DL (70-110)
[2024-10-31 06:21] LABS: PLATELET COUNT (AUTO) 465 K/uL (150-450); RED BLOOD CELL COUNT(AUTO) 4.06 MIL/uL (4.50-5.90); RED CELL DISTRIBUTION WIDTH 12.2 % (11.5-14.5); WHITE BLOOD COUNT (AUTO) 11.4 K/uL (4.5-11.0)
[2024-10-31 07:09] LABS: ASPARTATE AMINOTRANSFERASE 34 U/L (15-37); CALCIUM, TOTAL 8.0 mg/dL (8.8-10.5); CREATININE 0.57 mg/dL (0.60-1.30); GLOMERULAR FILTR. RATE CALC > 60 mL/min (>60); GLUCOSE,RANDOM 194 mg/dL (70-110); SODIUM SERUM 137 mmol/L (136-145); TOTAL PROTEIN, SERUM 7.0 g/dL (6.4-8.2); UREA NITROGEN, BLOOD 9 mg/dL (7-18)
[2024-10-31 08:52] VITALS: BP 169/73; PULSE 86; RESP 18; TEMP 98.4; O2SAT 96
[2024-10-31] MEDS ORDERED: RINGERS SOLUTION,LACTATED 1,000 ML IV ONE ×2 (10:38→16:55)
[2024-10-31] MEDS ORDERED: VANCOMYCIN HCL 1 GM VIAL ONE (11:00)
[2024-10-31] MEDS ORDERED: POTASSIUM CHL 10 MEQ/WATER 50 ML IV PRN (11:15)
[2024-10-31] MEDS: POTASSIUM CHLORIDE 20 MEQ ER TABLET PO PRN (11:39)
[2024-10-31 12:30] LABS: GLUCOMETER DEV NAME(LOC) 6N.2C; GLUCOSE,POINT OF CARE 252 MG/DL (70-110)
[2024-10-31] MEDS: RINGERS SOLUTION,LACTATED 1,000 ML IV ONE (13:33)
[2024-10-31] MEDS: CHLORHEXIDINE GLUCONATE 2% TOWELETTE [2'S/6'S] TP ONE (13:33)
[2024-10-31] MEDS: ETHYL ALCOHOL 62% ANTISEPTIC NASAL SANITIZER 0.6 ML AMPUL NASAL ONE (13:33)
[2024-10-31] MEDS ORDERED: FentaNYL CITRATE PF 100 MCG/2 ML VIAL ONE (15:52)
[2024-10-31] MEDS ORDERED: MIDAZOLAM HCL 2 MG/2 ML VIAL ONE (15:52)
[2024-10-31] MEDS ORDERED: MUPIROCIN CALCIUM 2% 22 GM OINTMENT ONE (17:23)
[2024-10-31] MEDS: BUPIVACAINE LIPOSOME/PF 1.3%-13.3MG/ML SUSP 20 ML VIAL INJ ONE (17:45)
[2024-10-31] MEDS: BUPIVACAINE HCL/PF 0.25% 30 ML VIAL ONE (17:45)
[2024-10-31 19:01] LABS: GLUCOMETER DEV NAME(LOC) 5S.2D; GLUCOSE,POINT OF CARE 283 MG/DL (70-110)
[2024-10-31 19:01] LABS: GLUCOMETER DEV NAME(LOC) 5S.2D; GLUCOSE,POINT OF CARE 310 MG/DL (70-110)
[2024-10-31 19:01] LABS: GLUCOMETER DEV NAME(LOC) 5S.2D; GLUCOSE,POINT OF CARE 295 MG/DL (70-110)
[2024-10-31 19:44] VITALS: BP 138/72; PULSE 82; RESP 18; TEMP 98.2; O2SAT 95
[2024-10-31] MEDS: CeFAZolin 1 GM/DEXTROSE 50 ML IV SCH (20:51)
[2024-10-31] MEDS: MORPHINE SULFATE 2 MG/ML SYRINGE IVP PRN (20:53)
[2024-10-31] MEDS: AMPICILLIN SODIUM/SULBACTAM NA 3 GM in SODIUM CHLORIDE 0.9% 100 ML IV SCH (21:26)
[2024-11-01 05:47] VITALS: BP 152/86; PULSE 97; RESP 18; TEMP 98.2; O2SAT 96
[2024-11-01 05:50] LABS: GLUCOMETER DEV NAME(LOC) SDS.; GLUCOSE,POINT OF CARE 171 MG/DL (70-110)
[2024-11-01 06:01] LABS: GLUCOMETER DEV NAME(LOC) 6N.2C; GLUCOSE,POINT OF CARE 213 MG/DL (70-110)
[2024-11-01] MEDS: OXYGEN THERAPY IH SCH (08:00)
[2024-11-01 10:32] VITALS: BP 160/87; PULSE 98; RESP 19; TEMP 99.3; O2SAT 100
[2024-11-01 12:06] LABS: GLUCOMETER DEV NAME(LOC) 6N.2C; GLUCOSE,POINT OF CARE 215 MG/DL (70-110)
[2024-11-01] MEDS ORDERED: LIDOCAINE 2% VISCOUS 15 ML SOLUTION UDCUP ONE (14:47)
[2024-11-01] MEDS ORDERED: MIDAZOLAM HCL 2 MG/2 ML VIAL ONE (14:59)
[2024-11-01] MEDS ORDERED: FentaNYL CITRATE PF 100 MCG/2 ML VIAL ONE (14:59)
[2024-11-01 15:03] VITALS: BP 141/75; PULSE 89
[2024-11-01 15:06] VITALS: BP 140/72; PULSE 91; RESP 18; TEMP 98.8; O2SAT 96
[2024-11-01] MEDS: LIDOCAINE 2% VISCOUS 15 ML SOLUTION UDCUP PO ONE (15:34)
[2024-11-01] MEDS: MIDAZOLAM HCL 2 MG/2 ML VIAL IVP ONE ×2 (15:34→15:36)
[2024-11-01] MEDS: FentaNYL CITRATE PF 100 MCG/2 ML VIAL IVP ONE ×2 (15:35→15:36)
[2024-11-01 16:09] VITALS: BP 135/74; PULSE 85
[2024-11-01 16:46] LABS: GLUCOMETER DEV NAME(LOC) 6N.2C; GLUCOSE,POINT OF CARE 201 MG/DL (70-110)
[2024-11-01 20:49] VITALS: BP 132/77; PULSE 92; RESP 18; TEMP 99.7; O2SAT 97
[2024-11-02 05:04] VITALS: BP 149/78; PULSE 90; RESP 20; TEMP 98.4; O2SAT 98
[2024-11-02 06:56] LABS: GLUCOMETER DEV NAME(LOC) 6N.2C; GLUCOSE,POINT OF CARE 202 MG/DL (70-110)
[2024-11-02 06:56] LABS: GLUCOMETER DEV NAME(LOC) 6N.2C; GLUCOSE,POINT OF CARE 259 MG/DL (70-110)
[2024-11-02] MEDS ORDERED: SODIUM CHLORIDE 0.9% 1,000 ML ONE (08:49)
[2024-11-02] MEDS: CefTRIAXone SODIUM 2 GM in DEXTROSE 5%-WATER 50 ML IV SCH (09:09)
[2024-11-02] MEDS: HYDROCODONE/ACETAMINOPHEN 5-325 MG TABLET PO PRN (09:25)
[2024-11-02 11:56] LABS: GLUCOMETER DEV NAME(LOC) 6N.2C; GLUCOSE,POINT OF CARE 271 MG/DL (70-110)
[2024-11-02 18:11] LABS: GLUCOMETER DEV NAME(LOC) 6N.2C; GLUCOSE,POINT OF CARE 174 MG/DL (70-110)
[2024-11-02 20:00] VITALS: BP 146/81; PULSE 94; RESP 18; TEMP 98.2; O2SAT 97
[2024-11-02 22:31] LABS: GLUCOMETER DEV NAME(LOC) 6N.2C; GLUCOSE,POINT OF CARE 200 MG/DL (70-110)
[2024-11-03 05:55] VITALS: BP 147/85; PULSE 88; RESP 18; TEMP 98.1; O2SAT 96
[2024-11-03 07:04] LABS: PLATELET COUNT (AUTO) 495 K/uL (150-450); RED BLOOD CELL COUNT(AUTO) 4.04 MIL/uL (4.50-5.90); RED CELL DISTRIBUTION WIDTH 12.2 % (11.5-14.5); WHITE BLOOD COUNT (AUTO) 11.7 K/uL (4.5-11.0)
[2024-11-03 07:27] LABS: ASPARTATE AMINOTRANSFERASE 50 U/L (15-37); CALCIUM, TOTAL 7.7 mg/dL (8.8-10.5); CREATININE 0.53 mg/dL (0.60-1.30); GLOMERULAR FILTR. RATE CALC > 60 mL/min (>60); GLUCOSE,RANDOM 171 mg/dL (70-110); SODIUM SERUM 137 mmol/L (136-145); TOTAL PROTEIN, SERUM 7.0 g/dL (6.4-8.2); UREA NITROGEN, BLOOD 9 mg/dL (7-18)
[2024-11-03 08:17] VITALS: BP 120/80; PULSE 90; RESP 18; TEMP 97.9; O2SAT 99
[2024-11-03 11:22] VITALS: BP 128/70; PULSE 90; RESP 18; TEMP 98.6; O2SAT 96
[2024-11-03 11:36] LABS: GLUCOMETER DEV NAME(LOC) 6N.2C; GLUCOSE,POINT OF CARE 201 MG/DL (70-110)
[2024-11-03 16:33] VITALS: BP 136/72; PULSE 71; RESP 19; TEMP 98.4; O2SAT 97
[2024-11-03 17:15] LABS: GLUCOMETER DEV NAME(LOC) 6N.2C; GLUCOSE,POINT OF CARE 201 MG/DL (70-110)
[2024-11-03 21:00] VITALS: BP 120/71; PULSE 90; RESP 19; TEMP 98.2; O2SAT 96
[2024-11-03 23:00] LABS: GLUCOMETER DEV NAME(LOC) 6N.2C; GLUCOSE,POINT OF CARE 282 MG/DL (70-110)
[2024-11-04 05:36] VITALS: BP 146/80; PULSE 86; RESP 18; TEMP 98.1; O2SAT 96
[2024-11-04 06:26] LABS: GLUCOMETER DEV NAME(LOC) 6N.2C; GLUCOSE,POINT OF CARE 189 MG/DL (70-110)
[2024-11-04 08:17] VITALS: BP 140/78; PULSE 89; RESP 18; TEMP 97.9; O2SAT 98
[2024-11-04 11:50] LABS: GLUCOMETER DEV NAME(LOC) 6N.2C; GLUCOSE,POINT OF CARE 211 MG/DL (70-110)
[2024-11-04 15:20] VITALS: BP 128/80; PULSE 87; RESP 18; TEMP 97.6; O2SAT 99
[2024-11-04 20:00] VITALS: BP 115/72; PULSE 95; RESP 18; TEMP 98.8; O2SAT 96
[2024-11-04 20:21] LABS: GLUCOMETER DEV NAME(LOC) 6N.2C; GLUCOSE,POINT OF CARE 156 MG/DL (70-110)
[2024-11-04 21:20] LABS: GLUCOMETER DEV NAME(LOC) 6N.2C; GLUCOSE,POINT OF CARE 171 MG/DL (70-110)
[2024-11-05 04:19] VITALS: BP 150/70; PULSE 83; RESP 18; TEMP 98.4; O2SAT 100
[2024-11-05 07:20] LABS: GLUCOMETER DEV NAME(LOC) 6N.2C; GLUCOSE,POINT OF CARE 178 MG/DL (70-110)
[2024-11-05 08:24] VITALS: BP 142/81; PULSE 81; RESP 18; TEMP 98.4; O2SAT 100
[2024-11-05 12:36] LABS: GLUCOMETER DEV NAME(LOC) 6N.2C; GLUCOSE,POINT OF CARE 201 MG/DL (70-110)
== END 2024-11-05 13:00 | DRG 239 ==
LOC: EMS 10:14 → EDH 11:27 → 5S 14:50 → 4E 10-26 20:10
PROVIDERS: ADMIT Internal Medicine; ATTEND Internal Medicine
PROC: 0QBN0ZZ Excision of Right Metatarsal, Open Approach (ICD-10-PCS; 2024-10-25)
PROC: 05HC33Z Insertion of Infusion Device into Left Basilic Vein, Percutaneous Approach (ICD-10-PCS; 2024-10-30)
PROC: B54NZZA Ultrasonography of Left Upper Extremity Veins, Guidance (ICD-10-PCS; 2024-10-30)
PROC: 0Y6H0Z1 Detachment at Right Lower Leg, High, Open Approach (ICD-10-PCS; principal; 2024-10-31 14:30)
DX: E11.52 Type 2 diabetes mellitus with diabetic peripheral angiopathy with gangrene (principal); A48.0 Gas gangrene; E87.1 Hypo-osmolality and hyponatremia; E87.20 Acidosis, unspecified; L02.611 Cutaneous abscess of right foot; R78.81 Bacteremia; B96.89 Other specified bacterial agents as the cause of diseases classified elsewhere; E11.65 Type 2 diabetes mellitus with hyperglycemia; Z20.822 Contact with and (suspected) exposure to COVID-19; I10 Essential (primary) hypertension; E66.3 Overweight; E78.00 Pure hypercholesterolemia, unspecified; E11.621 Type 2 diabetes mellitus with foot ulcer; B95.4 Other streptococcus as the cause of diseases classified elsewhere; Z79.899 Other long term (current) drug therapy; Z79.84 Long term (current) use of oral hypoglycemic drugs; Z93.3 Colostomy status; Z79.82 Long term (current) use of aspirin
CPT/HCPCS: 36245; 36569; 71045; 73723; 76937; 80048; 80053; 80076; 80202; 81001; 81003; 81005; 82009; 82550; 82962; 83036; 83605; 83735; 83880; 84132; 84145; 84484; 85025; 85651; 86140; 87040; 87070; 87077; 87081; 87205; 87804; 88305; 88307; 88311; 93005; 93306; 93312; 93925; 96365; 96367; 96368; 96375; 96376; 97110; 97116; 97162; 97164; 97166; 97168; 97530; 97535; 99285; G0378; J0131; J0295; J0666; J0690; J0692; J0696; J1644; J1815; J2250; J2270; J2405; J2543; J2704; J3010; J3373; J3480; J3490; J7030; J7050; J7060; J7120; 36415-L1; 36415-TC; Z7610

== ENCOUNTER 2024-11-05 11:50 | Inpatient (IN) | payer OTHER ==
[2024-11-05 13:10] VITALS: BP 122/67; PULSE 82; RESP 18; TEMP 97.9; O2SAT 100
[2024-11-05] MEDS ORDERED: BISACODYL 10 MG RECTAL RECTAL SUPPOSITORY PR PRN (13:15)
[2024-11-05] MEDS ORDERED: MAGNESIUM HYDROXIDE SUSPENSION 30 ML UDCUP PO PRN (13:15)
[2024-11-05] MEDS ORDERED: DEXTROSE 50%-WATER 25 GM/50 ML SYRINGE IVP PRN (13:15)
[2024-11-05] MEDS: HEPARIN SODIUM,PORCINE 5,000 UNITS/ML VIAL SQ SCH (16:31)
[2024-11-05 17:01] LABS: GLUCOMETER DEV NAME(LOC) 2WR.2C; GLUCOSE,POINT OF CARE 252 MG/DL (70-110)
[2024-11-05] MEDS: INSULIN LISPRO 100 UNITS/ML SQ PRN (17:06)
[2024-11-05] MEDS: PNEUMOCOCCAL VACCINE POLYVALENT 0.5 ML SYRINGE [PPSV23] IM. ONE (17:28)
[2024-11-05 20:00] VITALS: BP 111/64; PULSE 84; RESP 18; TEMP 98.2; O2SAT 100
[2024-11-05 20:46] LABS: GLUCOMETER DEV NAME(LOC) 2WR.2C; GLUCOSE,POINT OF CARE 145 MG/DL (70-110)
[2024-11-05] MEDS: 0.9% SODIUM CHLORIDE 10 ML SYRINGE IVP SCH (21:42)
[2024-11-05] MEDS: ETHYL ALCOHOL 62% ANTISEPTIC NASAL SANITIZER 0.6 ML AMPUL NASAL SCH (21:42)
[2024-11-05] MEDS: ROSUVASTATIN CALCIUM 10 MG TABLET PO SCH (21:43)
[2024-11-05] MEDS: ZOLPIDEM TARTRATE 5 MG TABLET PO PRN (21:54)
[2024-11-06 06:21] LABS: GLUCOMETER DEV NAME(LOC) 2WR.2C; GLUCOSE,POINT OF CARE 182 MG/DL (70-110)
[2024-11-06 07:03] LABS: PLATELET COUNT (AUTO) 453 K/uL (150-450); RED BLOOD CELL COUNT(AUTO) 4.29 MIL/uL (4.50-5.90); RED CELL DISTRIBUTION WIDTH 12.3 % (11.5-14.5); WHITE BLOOD COUNT (AUTO) 8.2 K/uL (4.5-11.0)
[2024-11-06 07:28] LABS: ASPARTATE AMINOTRANSFERASE 23 U/L (15-37); CALCIUM, TOTAL 8.8 mg/dL (8.8-10.5); CREATININE 0.70 mg/dL (0.60-1.30); GLOMERULAR FILTR. RATE CALC > 60 mL/min (>60); GLUCOSE,RANDOM 198 mg/dL (70-110); TOTAL PROTEIN, SERUM 4.6 g/dL (6.4-8.2); UREA NITROGEN, BLOOD 10 mg/dL (7-18)
[2024-11-06 08:00] VITALS: BP 135/76; PULSE 99; RESP 19; TEMP 98.4; O2SAT 100
[2024-11-06] MEDS: LOSARTAN POTASSIUM 50 MG TABLET PO SCH (08:03)
[2024-11-06] MEDS: ASPIRIN 81 MG CHEWABLE TABLET PO SCH (08:03)
[2024-11-06] MEDS: PANTOPRAZOLE SODIUM 40 MG DR TABLET PO SCH (08:03)
[2024-11-06 08:45] LABS: SODIUM SERUM 136 mmol/L (136-145)
[2024-11-06] MEDS ORDERED: SODIUM CHLORIDE 0.9% 250 ML IV ONE (09:42)
[2024-11-06 10:07] VITALS: O2SAT 100
[2024-11-06] MEDS: CefTRIAXone SODIUM 2 GM in DEXTROSE 5%-WATER 50 ML IV SCH (10:25)
[2024-11-06 12:32] LABS: GLUCOMETER DEV NAME(LOC) 2WR.2C; GLUCOSE,POINT OF CARE 186 MG/DL (70-110)
[2024-11-06 17:15] LABS: GLUCOMETER DEV NAME(LOC) 2WR.2C; GLUCOSE,POINT OF CARE 145 MG/DL (70-110)
[2024-11-06 20:02] VITALS: BP 136/90; PULSE 91; RESP 18; TEMP 98.8; O2SAT 98
[2024-11-06 22:11] LABS: GLUCOMETER DEV NAME(LOC) 2WR.1D; GLUCOSE,POINT OF CARE 172 MG/DL (70-110)
[2024-11-06 22:52] VITALS: O2SAT 98
[2024-11-07 07:53] LABS: GLUCOMETER DEV NAME(LOC) 2WR.2C; GLUCOSE,POINT OF CARE 153 MG/DL (70-110)
[2024-11-07 08:00] VITALS: BP 145/81; PULSE 86; RESP 19; TEMP 97.8; O2SAT 100
[2024-11-07 11:36] LABS: GLUCOMETER DEV NAME(LOC) 2WR.2C; GLUCOSE,POINT OF CARE 278 MG/DL (70-110)
[2024-11-07 17:45] LABS: GLUCOMETER DEV NAME(LOC) 2WR.2C; GLUCOSE,POINT OF CARE 186 MG/DL (70-110)
[2024-11-07 20:05] VITALS: BP 113/73; PULSE 86; RESP 18; TEMP 98.2; O2SAT 99
[2024-11-07] MEDS: HYDROCODONE/ACETAMINOPHEN 5-325 MG TABLET PO PRN (21:01)
[2024-11-07] MEDS: INSULIN GLARGINE,HUM.REC.ANLOG 100 UNITS/ML SQ SCH (21:09)
[2024-11-07 22:44] VITALS: O2SAT 99
[2024-11-08 04:01] LABS: GLUCOMETER DEV NAME(LOC) 2WR.2C; GLUCOSE,POINT OF CARE 202 MG/DL (70-110)
[2024-11-08 06:31] LABS: GLUCOMETER DEV NAME(LOC) 2WR.2C; GLUCOSE,POINT OF CARE 148 MG/DL (70-110)
[2024-11-08 08:00] VITALS: BP 129/75; PULSE 86; RESP 16; TEMP 98.1; O2SAT 97
[2024-11-08 12:15] LABS: GLUCOMETER DEV NAME(LOC) 2WR.1D; GLUCOSE,POINT OF CARE 182 MG/DL (70-110)
[2024-11-08 17:30] LABS: GLUCOMETER DEV NAME(LOC) 2WR.1D; GLUCOSE,POINT OF CARE 176 MG/DL (70-110)
[2024-11-08 20:58] VITALS: BP 122/78; PULSE 82; RESP 18; TEMP 97.9; O2SAT 98
[2024-11-08] MEDS: INSULIN GLARGINE,HUM.REC.ANLOG 100 UNITS/ML SQ SCH (21:07)
[2024-11-08 22:06] VITALS: O2SAT 98
[2024-11-09 01:46] LABS: GLUCOMETER DEV NAME(LOC) 2WR.2C; GLUCOSE,POINT OF CARE 187 MG/DL (70-110)
[2024-11-09 06:51] LABS: GLUCOMETER DEV NAME(LOC) 2WR.2C; GLUCOSE,POINT OF CARE 155 MG/DL (70-110)
[2024-11-09 08:00] VITALS: BP 130/77; PULSE 89; RESP 19; TEMP 97.8; O2SAT 100
[2024-11-09 12:50] LABS: GLUCOMETER DEV NAME(LOC) 2WR.1D; GLUCOSE,POINT OF CARE 177 MG/DL (70-110)
[2024-11-09 17:25] LABS: GLUCOMETER DEV NAME(LOC) 2WR.2C; GLUCOSE,POINT OF CARE 173 MG/DL (70-110)
[2024-11-09 20:18] VITALS: BP 104/69; PULSE 95; RESP 18; TEMP 98.2; O2SAT 98
[2024-11-10 05:32] VITALS: O2SAT 98
[2024-11-10 05:46] LABS: GLUCOMETER DEV NAME(LOC) 2WR.1D; GLUCOSE,POINT OF CARE 149 MG/DL (70-110)
[2024-11-10 06:55] LABS: GLUCOMETER DEV NAME(LOC) 2WR.1D; GLUCOSE,POINT OF CARE 141 MG/DL (70-110)
[2024-11-10 08:12] VITALS: BP 127/80; PULSE 85; RESP 19; TEMP 97.8; O2SAT 98
[2024-11-10 12:11] LABS: GLUCOMETER DEV NAME(LOC) 2WR.1D; GLUCOSE,POINT OF CARE 167 MG/DL (70-110)
[2024-11-10 16:56] LABS: GLUCOMETER DEV NAME(LOC) 2WR.2C; GLUCOSE,POINT OF CARE 196 MG/DL (70-110)
[2024-11-10 20:00] VITALS: BP 107/68; PULSE 87; RESP 18; TEMP 98.2; O2SAT 98; O2SAT 99
[2024-11-10 22:01] LABS: GLUCOMETER DEV NAME(LOC) 2WR.2C; GLUCOSE,POINT OF CARE 158 MG/DL (70-110)
[2024-11-11] VITALS (9 sets, daily range): BP systolic 95–130; BP diastolic 55–94; PULSE 80–111; RESP 18–19; TEMP 97.7–98.4; O2SAT 98–100
[2024-11-11 06:55] LABS: GLUCOMETER DEV NAME(LOC) 2WR.1D; GLUCOSE,POINT OF CARE 134 MG/DL (70-110)
[2024-11-11 12:56] LABS: GLUCOMETER DEV NAME(LOC) 2WR.2C; GLUCOSE,POINT OF CARE 165 MG/DL (70-110)
[2024-11-11] MEDS: ACETAMINOPHEN 325 MG TABLET PO PRN (15:12)
[2024-11-11 18:10] LABS: GLUCOMETER DEV NAME(LOC) 2WR.2C; GLUCOSE,POINT OF CARE 146 MG/DL (70-110)
[2024-11-11 21:10] LABS: GLUCOMETER DEV NAME(LOC) 2WR.1D; GLUCOSE,POINT OF CARE 135 MG/DL (70-110)
[2024-11-11] MEDS ORDERED: INSLAN SQ (21:57)
[2024-11-11] MEDS ORDERED: INSU100V SQ (22:07)
[2024-11-11] MEDS ORDERED: CARV-165 PO (22:08)
[2024-11-11] MEDS ORDERED: ZOLP-280 PO (22:16)
[2024-11-11] MEDS ORDERED: PANT-31 PO (22:18)
[2024-11-12 07:15] LABS: GLUCOMETER DEV NAME(LOC) 2WR.2C; GLUCOSE,POINT OF CARE 162 MG/DL (70-110)
[2024-11-12 08:00] VITALS: BP 103/62; PULSE 92; RESP 19; TEMP 98.2; O2SAT 99
[2024-11-12] MEDS ORDERED: INSLAN SQ (08:38)
[2024-11-12] MEDS ORDERED: AMLO-258 PO (08:38)
[2024-11-12] MEDS ORDERED: CARV-165 PO (08:38)
[2024-11-12] MEDS ORDERED: METF-1211 PO (08:38)
[2024-11-12] MEDS ORDERED: INSU100V SQ (08:38)
[2024-11-12] MEDS ORDERED: LOSA-382 PO (08:38)
[2024-11-12] MEDS ORDERED: ASPI-1450 PO (08:38)
[2024-11-12] MEDS ORDERED: PANT-31 PO (08:38)
[2024-11-12] MEDS ORDERED: ROSU10TA72 PO (08:38)
[2024-11-12 10:14] VITALS: BP 102/76; PULSE 79; RESP 18; TEMP 98.1; O2SAT 98
[2024-11-12 12:10] LABS: GLUCOMETER DEV NAME(LOC) 2WR.2C; GLUCOSE,POINT OF CARE 170 MG/DL (70-110)
== END 2024-11-12 14:00 | disposition home or self-care (01) | DRG 559 ==
LOC: 2WR 13:08
PROVIDERS: ADMIT Physical Medicine & Rehabilitation; ATTEND Physical Medicine & Rehabilitation
DX: Z47.81 Encounter for orthopedic aftercare following surgical amputation (principal); A41.9 Sepsis, unspecified organism; E46 Unspecified protein-calorie malnutrition; E87.20 Acidosis, unspecified; E10.621 Type 1 diabetes mellitus with foot ulcer; Z74.09 Other reduced mobility; E66.01 Morbid (severe) obesity due to excess calories; E78.5 Hyperlipidemia, unspecified; I10 Essential (primary) hypertension; D64.9 Anemia, unspecified; E10.40 Type 1 diabetes mellitus with diabetic neuropathy, unspecified; F41.9 Anxiety disorder, unspecified; L97.519 Non-pressure chronic ulcer of other part of right foot with unspecified severity; R26.9 Unspecified abnormalities of gait and mobility; Z89.511 Acquired absence of right leg below knee; Z79.82 Long term (current) use of aspirin; Z83.3 Family history of diabetes mellitus; Z91.199 Patient's noncompliance with other medical treatment and regimen due to unspecified reason
CPT/HCPCS: 80053; 82962; 85025; 87081; 93970; 97110; 97116; 97163; 97167; 97530; 97535; 99366; J0696; J1644; J1815; J7050; J7060

== ENCOUNTER → 2024-12-05 | Outpatient (CLI) | payer OTHER ==
[~2024-12-05] MED LIST changes: +AMLO-258 PO; +ASPI-1450 PO; +CARV-165 PO; +INSLAN SQ; +INSU100V SQ; +LOSA-382 PO; +METF-1211 PO; +PANT-31 PO; -ROSU10TA72 PO; +ROSU10TA98 PO
[2024-12-05 16:10] LABS: PLATELET COUNT (AUTO) 256 K/uL (150-450); RED BLOOD CELL COUNT(AUTO) 4.71 MIL/uL (4.50-5.90); RED CELL DISTRIBUTION WIDTH 13.2 % (11.5-14.5); WHITE BLOOD COUNT (AUTO) 6.9 K/uL (4.5-11.0)
[2024-12-05 16:51] LABS: ASPARTATE AMINOTRANSFERASE 20 U/L (15-37); CALCIUM, TOTAL 8.9 mg/dL (8.8-10.5); CHOL/HDL RATIO 5.9 (4.2-7.3); CREATININE 0.56 mg/dL (0.60-1.30); GLOMERULAR FILTR. RATE CALC > 60 mL/min (>60); GLUCOSE,RANDOM 225 mg/dL (70-110); LDL CHOL (CALC.) 141 mg/dL (0-130); SODIUM SERUM 140 mmol/L (136-145); TOTAL PROTEIN, SERUM 7.6 g/dL (6.4-8.2); UREA NITROGEN, BLOOD 12 mg/dL (7-18)
[2024-12-05 16:55] LABS: VITAMIN D,TOTAL (25-0H) 12 ng/mL (30-100)
[2024-12-05 17:00] LABS: FOLATE SERUM 17.6 ng/mL (5.4-); VITAMIN B12 LEVEL > 2000 pg/mL (211-911)
[2024-12-06 06:06] LABS: HEPATITIS C AB (EIA) Non Reactive (Non Reactive)
[2024-12-06 08:07] LABS: ALBUMIN/CREATININE RATIO 20.0 mg/g creat (0-29); CREATININE, URINE (mALB) 238.0 mg/dL (Not Estab.)
== END | disposition home or self-care (01) ==
LOC: LABMN 15:19
PROVIDERS: ATTEND Internal Medicine
DX: E11.51 Type 2 diabetes mellitus with diabetic peripheral angiopathy without gangrene (principal); I73.9 Peripheral vascular disease, unspecified
CPT/HCPCS: 80053; 80061; 82043; 82306; 82570; 82607; 82746; 83036; 84153; 85025; 86706; 86803; 87340